=== PATIENT | female | born 1995 | race Caucasian/White ===

== ENCOUNTER 2021-11-06 18:21 | Emergency (ER) | payer MEDICAID, SELFPAY ==
[2021-11-06 18:23] VITALS: BP 127/64; PULSE 90; RESP 18; TEMP 36.8; O2SAT 100; BMI 30.7
--- NOTE | 2021-11-06 19:13 | EDS_ITS ---
HPI History of Present Illness Chief Complaint: Cold Sx Informant: patient Narrative Narrative: Patient's had about 3 days of sore throat. She has had nasal congestion and drainage. This is clear. She has had nonproductive cough. No wheezing. No chest pain. She has some tiredness. Her appetite is down but no real vomiting. She has had mild nausea but has had this throughout her and its not different. No diarrhea or abdominal pain. No pelvic pain or urinary symptoms. No known exposure to COVID. PFSH PFSH Medical History Smoker Home Medications penicillin V potassium 500 mg PO 4X/DAY #40 tab 11/06/21 [Rx Last Taken Unknown] Allergy/AdvReac Type Severity Reaction Status Date / Time cefixime [From Suprax] Allergy Hives Verified 11/06/21 18:22 sulfamethoxazole Allergy Hives Verified 11/06/21 18:22 [From Bactrim] trimethoprim [From Bactrim] Allergy Hives Verified 11/06/21 18:22 Surgical History History of Social History Smoking Status: Smoker, status unknown ROS ROS ED Constitutional Constitutional ED: Reports subjective; Denies weight loss Eyes Eyes: Denies blurry vision ENT ENT ED: Reports ear pain, rhinorrhea and sore throat Cardiovascular Cardiovascular: Denies chest pain or palpitations Respiratory/Chest Respiratory/Chest: Reports cough; Denies dyspnea or sputum Gastrointestinal Gastrointestinal: Reports nausea; Denies abdominal pain, diarrhea or vomiting Genitourinary Genitourinary ED: Denies dysuria or hematuria Musculoskeletal Musculoskeletal: Reports myalgias Integumentary Denies rash Neurologic Neurologic: Denies headache(s) Psychiatric Psychiatric: Denies anxiety or depression Endocrine Endocrinology: Denies polydipsia or polyuria Allergic/Immunologic Allergic/Immunologic ED: Denies urticaria EXAM Physical Exam Const Vital Signs: 11/06/21 18:23 11/06/21 18:38 Temperature 98.2 F Temperature Source Temporal Pulse Rate 90 Respiratory Rate 18 Respiratory Effort Normal Respiratory Pattern Normal Blood Pressure 127/64 H Blood Pressure Mean 85 Pulse Ox 100 Oxygen Delivery Method Room Air Positive well nourished and well developed General Appearance ED: well developed and NAD; Negative for cyanotic or diaphore tic HEENT Reports moist mucous membranes HEENT Narrative: Oropharynx shows erythema but no asymmetry swelling or ex udates. There is an odor, however, consistent with strep. Her voice is normal. No sinus tenderness. Mild clear rhinorrhea. Tympanic membranes both have cerumen in the canals but visible tympanic membrane is clear. Eyes PERRL and EOMs intact bilaterally Neck no lymphadenopathy and no JVD Chest Wall inspection of chest normal Resp normal respiratory effort and clear to auscultation bilaterally Resp Narrative: No coughing while I am in the room. No cough induced with deep breaths. Effort and Inspection: Negative for pain with movement Auscultation: Negative for rales, rhonchi or wheezes Cardio regular rate and regular rhythm GI normal to inspection, nondistended, normoactive bowel sounds and non-tender GI Narrative: No abdominal tenderness in any area. Palpation: soft Back/Spine no CVA tenderness Extremity normal to inspection General Extremety ED: Negative for edema or tenderness General Extremity: Negative for edema Neuro oriented x3 Sensorium / Orientation: alert Psych mental status grossly normal Skin no rashes or lesions noted MDM MDM MDM Narrative Medical decision making narrative: COVID is negative. Strep is positive. With positive sore throat, positive odor consistent with strep, positive test and her symptoms I think it is worth treatment. Although she has allergies to Suprax she states she has had penicillin with no problems at all. Discharge Plan Triage Chief Complaint: Cold Sx ED Provider: Alfonso Morrissey Dx/Rx/DC Orders Clinical Impression: Strep throat Instructions: ED Pharyngitis, Strep (Confirmed) Prescriptions: New penicillin V potassium 500 MG tablet 500 mg PO 4X/DAY Qty: 40 RF: 0 Primary Care Provider: Care Physician,No Primary Referrals: Bassam Bach MD [STAFF PHYSICIAN] - 3-5 Days if not improving Care Physician,No Primary [Primary Care Provider] - Activity Restrictions/Additional Instructions: Follow-up with your primary physician or OB physician in the next few days for recheck. We have referral to primary if needed. Disposition Disposition: Home, Self Care
[2021-11-06] MEDS: Penicillin Vk 250 MG Tablet 500 MG PO (19:50)
[2021-11-06 19:52] VITALS: PULSE 93; O2SAT 97
--- NOTE | 2021-11-07 10:41 | ED.RN ---
Pt called and stated that rx was not received by [facility]. RX [facility]. pt is aware has to wait 2 hours for filling rx.
== END 2021-11-06 19:54 | disposition home or self-care (01) ==
PROVIDERS: Emergency Provider Emergency Medicine; Visit Provider Emergency Medicine
DX: J02.0 Streptococcal pharyngitis (principal); Z20.822 Contact with and (suspected) exposure to COVID-19; R11.0 Nausea
CPT/HCPCS: 87426; 87880; 99283

== ENCOUNTER 2022-04-23 15:20 | Emergency (ER) | payer MEDICAID, SELFPAY ==
[2022-04-23 15:21] VITALS: BP 118/75; PULSE 101; RESP 17; TEMP 37; O2SAT 97; BMI 33.8
--- NOTE | 2022-04-23 17:29 | ED.VIS.FALL ---
HPI HPI - Fall History of Present Illness Chief Complaint: Fall Informant: patient Occured/Mechanism Occurred: Today Mechanism/Context: Yes same level fall Pain/Injury Location: Right parietal area Pain Location: head Quality of Pain: Dull Worsened by: Nothing Relieved by: Nothing Associated Symptoms Associated Symptoms: Negative for Parasthesias, Weakness, Loss of function, Inability to ambulate, Loss of consciousness or Amnesia Narrative Narrative: Patient presents with a fall that occurred today. Patient states she woke up from a nap and got out of bed. Patient was holding her daughter. Patient states she lost her balance and fell. Patient hit the right side of her head on the nightstand. Patient denies any loss of consciousness. Patient describes her pain as dull. Patient denies any paresthesias or weakness. Patient denies any nausea or vomiting. Patient denies any visual changes. 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 [facility] History Ataxia Smoker Home Medications NK 04/23/22 [History Last Taken Unknown] Allergy/AdvReac Type Severity Reaction Status Date / Time cefixime [From Suprax] Allergy Hives Verified 04/23/22 15:20 sulfamethoxazole Allergy Hives Verified 04/23/22 15:20 [From Bactrim] trimethoprim [From Bactrim] Allergy Hives Verified 04/23/22 15:20 Surgical History History of Social History Smoking Status: Smoker, status unknown ROS ROS ED Constitutional Constitutional ED: Denies chills or fever(s) Eyes Eyes: Denies blurry vision or change in vision ENT ENT ED: Denies rhinorrhea or sore throat Cardiovascular Cardiovascular: Denies chest pain or palpitations Respiratory/Chest Respiratory/Chest: Denies cough or dyspnea Gastrointestinal Gastrointestinal: Denies nausea or vomiting Genitourinary Genitourinary ED: Denies dysuria or hematuria Musculoskeletal Musculoskeletal: Denies back pain or neck pain Integumentary Denies abscess or rash Neurologic Neurologic: Denies headache(s) or weakness Allergic/Immunologic Allergic/Immunologic ED: Denies mouth swelling or urticaria EXAM Physical Exam Const Vital Signs: 04/23/22 15:21 04/23/22 16:35 Temperature 98.6 F Temperature Source Temporal Pulse Rate 101 H Respiratory Rate 17 Respiratory Effort Normal Non-Labored Respiratory Depth Normal Respiratory Pattern Normal Blood Pressure 118/75 Blood Pressure Mean 89 Pulse Ox 97 Oxygen Delivery Method Room Air Positive well nourished and well developed General Appearance ED: well developed and NAD HEENT HEENT Narrative: There is mild tenderness and edema over the right parietal area. There is no bony crepitance or step-off. There are no lacerations noted. Eyes PERRL and EOMs intact bilaterally Neck full ROM and supple Resp normal respiratory effort and clear to auscultation bilaterally Cardio regular rate and regular rhythm Neuro oriented x3, CN's II-XII intact bilaterally, moves all extremities, no focal motor deficits and no sensory deficits noted Carol Coma Scale: document GCS findings Spontaneous Obeys Commands Oriented 15 Sensorium / Orientation: alert Motor Exam: strength 5/5 throughout Psych mental status grossly normal and thought process normal MDM MDM MDM Narrative Medical decision making narrative: Patient has a normal neurologic exam. I do not feel CT scan of the brain is necessary at this time. Patient was given head injury instructions. Patient was instructed to use ice to the area. Patient was instructed to take Tylenol or ibuprofen as needed for pain. Patient was instructed to follow-up with her primary care physician in 5 to 7 days. Patient understood and was agreeable with the plan. All questions were answered. Discharge Plan Triage Chief Complaint: Fall ED Provider: Abraham Prince Dx/Rx/DC Orders Clinical Impression: Closed head injury, Fall Instructions: ED Head Injury (Adult) Prescriptions: No Action NK Primary Care Provider: Care Physician,No Primary Referrals: Linda Pulliam [Non-Staff] - 5-7 Days Care Physician,No Primary [Primary Care Provider] - Disposition Disposition: Home, Self Care
[2022-04-23 17:45] VITALS: BP 125/64; PULSE 71; RESP 15; O2SAT 98
== END 2022-04-23 17:47 | disposition home or self-care (01) ==
PROVIDERS: Emergency Provider Emergency Medicine; Visit Provider Emergency Medicine
DX: S09.90XA Unspecified injury of head, initial encounter (principal); W18.30XA Fall on same level, unspecified, initial encounter
CPT/HCPCS: 99282